=== PATIENT | male | born 1970 | race Caucasian/White ===

== ENCOUNTER 2024-05-10 14:21 | Emergency (ER) | payer MEDICAID, SELFPAY ==
[2024-05-10 14:22] VITALS: BMI 22.8
[2024-05-10 14:50] VITALS: BP 162/79; PULSE 76; RESP 18; TEMP 36.9; O2SAT 99
--- NOTE | 2024-05-10 15:15 | XR_ITS ---
Examination:Left hip AP, lateral, AP pelvis 3 views Technique: Hip AP lateral, AP pelvis, 3 views Exam date and time:May 10, 2024 1522 hours INDICATIONS: Left hip pain 2 weeks FINDINGS: Mild osteopenia. Moderate narrowing left hip joint Multiple mild to moderate narrowing right hip joint No hip or pelvic fracture IMPRESSION: Moderate narrowing left hip joint
--- NOTE | 2024-05-10 15:15 | XR_ITS ---
Examination: Lumbar spine 3 views Technique one AP lateral coned lateral lower lumbar spine 3 views Exam date and time: May 10, 2024 1538 hours Comparison August 13, 2022 indications: Chronic back pain more severe the last 2 weeks. FINDINGS: Adequate alignment lumbar vertebral bodies on the lateral view No lumbar fracture Moderate disc narrowing L5-S1 IMPRESSION: Moderate degenerative disc disease L5-S1
--- NOTE | 2024-05-10 15:16 | PD.EDHIP ---
Lower Extremity Injury RME/HPI General Chief Complaint: Hip Injury/Pain Stated Complaint: Left Hip Pain, Back pain x 2 weeks Time Seen by Provider: 05/10/24 14:53 Arrival date/time: 05/10/24 14:21 RME / HPI RME / HPI Narrative: 54-year-old male patient came in for evaluation regarding left hip pain. Onset of symptoms for the last 2 weeks as worsening left hip pain and low back pain, worst with positional change. Patient is walking but limping. Patient denies any direct trauma or fall. Pain is described as dull ache, severity moderate. Patient not taking anything for pain. Patient denies any saddle anesthesia leg weakness, leg numbness, bladder incontinence and bowel incontinence. Related Data Home Medications ?Medication ?Instructions ?Recorded ?Confirmed aspirin 81 mg tablet,delayed 1 tab PO QDAY 06/06/17 06/06/17 release (Aspir-) lisinopril 10 mg tablet 10 mg PO QDAY 06/06/17 06/06/17 trazodone 50 mg tablet 50 mg PO QDAY 06/06/17 06/06/17 Previous Rx's ?Medication ?Instructions ?Recorded tramadol 50 mg tablet 50 mg PO BID PRN pain #7 tabs 08/13/22 tramadol 50 mg tablet 50 mg PO BID PRN pain #10 tabs 10/17/22 tramadol 50 mg tablet 50 mg PO BID PRN pain #7 tabs 02/17/23 cyclobenzaprine 10 mg tablet 10 mg PO TID PRN muscle spasm #30 05/10/24 tabs ibuprofen 800 mg tablet 800 mg PO TID PRN pain #30 tabs 05/10/24 Allergies Allergy/AdvReac Type Severity Reaction Status Date / Time No Known Allergies Allergy Verified 02/17/23 13:04 Review of Systems Review of Systems Narrative Review of Systems: Review of system reviewed and within normal limits except mentioned in HPI ED Exam Narrative Physical exam: VITAL SIGNS: Reviewed. GENERAL APPEARANCE: Alert and interactive, follows commands, no acute distress, HEAD AND FACE: Non-traumatic. ENT: PERRL, pink conjunctivitis, eyelid no trauma, Mucous membrane moist. NECK: Supple, nontender, no nuchal rigidity. CHEST: No tenderness, no crepitus, no paradoxical movement, no retractions. LUNGS: Clear, well ventilated, symmetric, no rales, no wheezing, no ronchi, no stridor, good breath sounds bilaterally. HEART: Regular rate, regular rhythm, no murmur, no gallops. ABDOMEN: Soft, positive bowel sounds, nondistended, no guarding, nontender, no rebound, no masses, RECTAL: Deferred. GENITAL: Deferred. NEUROLOGICAL: Gross motor function intact sensory function intact, Appropriate for age. MUSCULOSKELETAL: low back tenderness, with limitation range of motion. No masses palpated, no rashes noted EXTREMITIES: Left hip tenderness, with limitation range of motion. SKIN: Color pink, dry, no rash, no lacerations, no abrasions, no contusions. LYMPHATICS: Deferred. Course Quality Measures none Orders Category Date Time Status XR hip LT w pelvis 2-3V Stat Exams 05/10/24 15:15 Completed XR lumbar spine 2-3V Stat Exams 05/10/24 15:15 Completed CYCLObenzaPRINE [Flexeril] Med 05/10/24 15:15 Discontinued 10 mg PO X1 ONE Ketorolac Inj [Toradol Inj] Med 05/10/24 15:15 Discontinued 30 mg IM X1 ONE Vital Signs Vital signs: Vital Signs Temperature 98.5 F 05/10/24 14:50 Pulse Rate 76 05/10/24 14:50 Respiratory Rate 18 05/10/24 14:50 Blood Pressure 162/79 H 05/10/24 14:50 Pulse Oximetry (%) 99 05/10/24 14:50 Oxygen Delivery Method Room Air 05/10/24 14:50 Extremity Injury, Lower MDM Narrative MDM Narrative:: 54-year-old male patient came in for evaluation regarding left hip pain. Onset of symptoms for the last 2 weeks as worsening left hip pain and low back pain, worst with positional change. Patient is walking but limping. Patient denies any direct trauma or fall. Pain is described as dull ache, severity moderate. Patient not taking anything for pain. Patient denies any saddle anesthesia leg weakness, leg numbness, bladder incontinence and bowel incontinence. X-ray of the hip showed narrowing of the joint space otherwise unremarkable. X-ray of the lumbar spine showed narrowing of the disc space L4-L5 otherwise unremarkable. Results discussed with the patient. Patient was also given a copy of his imaging today for him to follow-up with PCP tomorrow. Patient appears nontoxic and hemodynamically stable. Patient discharged home and instructed to follow-up with primary care provider in 24 to 48 hours. Instructed to return to the emergency department immediately if worsening of symptoms Patient data External records reviewed:: None Clinical information provided by:: none Social determinants that could affect healthcare access:: none Patient has the following chronic illnesses:: None How is presenting disease/condition affected by chronic disease/condition?: no chronic disease Evaluation data The following diagnostics were reviewed and interpreted by me:: radiology exam(s) Lab and/or radiology exams considered but not ordered:: Plan Interpretation Summary: See results in MDM Medications / Prescriptions Medications or Prescriptions considered but not ordered:: None Medication administrations:: Medication Administration History Discontinued Medications Cyclobenzaprine HCl (Cyclobenzaprine 5 Mg Tablet) 10 mg PO X1 ONE Stop: 05/10/24 15:16 Last Admin: 05/10/24 15:41 Dose: 10 mg Documented By: FAUSTO Ketorolac Tromethamine (Ketorolac Inj 60 Mg/2 Ml Vial) 30 mg IM X1 ONE Stop: 05/10/24 15:16 Last Admin: 05/10/24 15:41 Dose: 30 mg Documented By: FAUSTO Toradol and Flexeril Consultations Consultation(s) initiated? (list below): No Diagnosis Extremity Injury, Lower Differential Diagnosis: fracture of hip Most likely diagnosis given after review of the tests above:: Hip pain, low back pain, Admission Indicated Admission indicated?: not indicated Explain why admission is indicated or not indicated:: Stable Admission Request Was there a request for admission?: No Disposition Plan Disposition Plan: Discharge Discharge Attestation Discharge Attestation: The patient was given an opportunity to ask questions and understood the discharge instructions. Discharge instructions specifically effects, indications for sooner follow up or return to the emergency department, and the expected course of current diagnosis. Patient condition: Stable Discharge Plan Plan Patient Disposition: HOME (Self Care) Disposition Comment: Stable Prescriptions/Referrals Prescriptions/Med Rec: New ibuprofen 800 mg tablet 800 mg PO TID PRN (Reason: pain) Qty: 30 0RF cyclobenzaprine 10 mg tablet 10 mg PO TID PRN (Reason: muscle spasm) Qty: 30 0RF No Action aspirin [Aspir-81] 81 mg Tablet,Delayed Release (Dr/Ec) 1 tab PO QDAY trazodone 50 mg Tablet 50 mg PO QDAY lisinopril 10 mg Tablet 10 mg PO QDAY tramadol 50 mg tablet 50 mg PO BID PRN (Reason: pain) Qty: 7 0RF tramadol 50 mg tablet 50 mg PO BID MDD 2 PRN (Reason: pain) Qty: 10 0RF tramadol 50 mg tablet 50 mg PO BID PRN (Reason: pain) Qty: 7 0RF Referrals: No Primary/Family,Physician [Primary Care Provider] - In 1 week Problem List Clinical Impression: Hip pain, left, Hip osteoarthritis, DDD (degenerative disc disease), lumbar Patient/Caregiver Discharge Instructions Discharge Activity: activity as tolerated Education Materials: Arthritis: Exercise Additional Instructions: Thank you for the opportunity for serving you today. You are stable for discharged . You are advised to: Follow-up with your PCP in 1 to 2 days Return to ED for worsening of symptoms Increase oral fluids Take medication as prescribed Print Language: Cypriot Stand Alone Forms: [employer] Award Info., Work/School Release, Patient Portal Info Letter
[2024-05-10] MEDS: KETOROLAC INJ 60 MG/2 ML VIAL 30 MG IM (15:41)
[2024-05-10] MEDS: CYCLObenzaPRINE 5 MG TABLET 10 MG PO (15:41)
== END 2024-05-10 16:22 | disposition home or self-care (01) ==
PROVIDERS: Emergency Provider Emergency Medicine
DX: M16.12 Unilateral primary osteoarthritis, left hip (principal); M51.370 Other intervertebral disc degeneration, lumbosacral region with discogenic back pain only
CPT/HCPCS: 72100; 73502; 96372; 99283; J1885; A9270

== ENCOUNTER 2024-06-11 10:53 | Outpatient (RCR) | payer MEDICAID, SELFPAY ==
--- NOTE | 2024-06-11 11:31 | PT.OIERPT ---
PT OP Initial Eval Patient Information Outpatient Physical Therapy Treatment Date: 06/11/24 Visit Reasons: low back pain Medical Diagnosis: M54.50; M25.552 Treatment Dx #1: Back Pain Treatment Dx #2: Right Hip Pain Start of Care: 06/11/24 Date of Onset: 30 years ago Smoking Status Smoking Status: Current every day smoker Cessation Counseling Provided: GERALD was advised that quitting smoking is the single most important factor to protect the health of themselves and their family. Discussed the benefits of quitting smoking with patient. Encouraged patient to quit smoking and provided Cessation assistance materials and resources. Tobacco Use: Cigarette Years smoked: 20 Are you interested in quitting?: No Would you like additional Smoking Cessation Counseling?: No Initial Assessment Subjective: Pt is a 54 y/o male reports of chronic back pain ~ 30 years ago. Pt notice increase right LE pain lately. Pt's most recent xray showed L5-S1 moderate DDD. Pt is pending MRI post physical therapy. Pt has limitation with sitting, standing, lifting, work duties, chores, self care, and recreational activities. Objective: L/S AROM: all motions are WFL with end pain into extension Hip PROM: all motions are WFL except IR Hip MMTs: grossly 3+/5 Muscle Length: Hs tightness Special Test (+) SLR Assessment: Pt demonstrate back pain consistent with possible disc involvement leading to difficulty with ADLs. Pt will attempt physical therapy if pain persist Pt will be refer back to provider for further consultation. 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
== END 2024-06-18 23:59 | disposition home or self-care (01) ==
LOC: CPTX 10:53
PROVIDERS: PCP Nurse Practitioner Family; Referring Provider Nurse Practitioner Family; Visit Provider Nurse Practitioner Family
DX: M51.372 Other intervertebral disc degeneration, lumbosacral region with discogenic back pain and lower extremity pain (principal); M25.551 Pain in right hip; G89.29 Other chronic pain; Z71.6 Tobacco abuse counseling; F17.210 Nicotine dependence, cigarettes, uncomplicated
CPT/HCPCS: 97162

== ENCOUNTER 2024-06-19 09:11 | Outpatient (RCR) | payer MEDICAID, SELFPAY ==
--- NOTE | 2024-06-19 09:51 | PT.ODAYNRPT ---
PT Outpatient Daily Note OP Daily Note Outpatient Physical Therapy Treatment Date: 06/19/24 Visit Reasons: LOW BACK PAIN Subjective: Pt mentioned physical therapy is not going to help the back and it's a scam . Pt plans to head back to his provider to see if he can stop physical therapy; it's wasting his time. Objective: Please see flow chart for list of ther ex performed Assessment: patient came into therapy session with a negative attitude stated physical therapy was not going to help and it's a scam . Pt encouraged to complete session, however, stayed for ~ 15 mins performing a few exercises. Pt advised to consult with PCP post PT session if physical therapy is a fit for him at this time. Pt gave verbal consent and will make another appt with PCP. No change in pain post Pt session due to minimal effort giving in PT session Plan: Continue PT if pain warrants the service Length of Time (minutes) of Treatment: 15 Minutes Procedure Charges Therapeutic Exercise 15 minutes: Yes
--- NOTE | 2024-06-26 14:12 | PT.ODS1RPT ---
PT OP Progress/Discharge Note Date of Service: 06/26/24 Progress Note/DC Note Progress Note/Discharge Note: DC Note Patient Information Visit Reasons: LOW BACK PAIN Service Discharge Date: 06/26/24 Status Assessment: Pt has been seen for 2 visits (eval + 1 visit). Pt last treated on 06/19/24 and no showed 06/21/24. On Pt was not content with physical therapy and feels that it's a scam . Pt will like to discontinue and will talk to PCP. Pt d/c from care per Pt's request. Pt did not meet set goals in therapy; thank you for your referrals
== END 2024-07-18 23:59 | disposition home or self-care (01) ==
LOC: CPTX 09:11
PROVIDERS: PCP Nurse Practitioner Family; Referring Provider Nurse Practitioner Family; Visit Provider Nurse Practitioner Family
DX: M51.372 Other intervertebral disc degeneration, lumbosacral region with discogenic back pain and lower extremity pain (principal); G89.29 Other chronic pain
CPT/HCPCS: 97110

== ENCOUNTER → 2024-07-27 | Outpatient (CLI) | payer MEDICAID, SELFPAY ==
--- NOTE | 2024-07-27 16:30 | XR_ITS ---
Examination: MRI lumbar spine without contrast Date and time of exam: July 27, 2024 7004 hours INDICATIONS: Low back pain radiating to left leg weakness in the left leg 4 months post injury Technique: Multiple MRI axial and sagittal sections lumbar spine. Sagittal T2-weighted images, TR 3500, TE 118 T1 weighted transverse sections, TR 688 T8.5, T2-weighted sagittal sections T1 weighted sagittal sections TR 621, TE 30 T2 axial sections, TR 4, 190, TE 84. Findings: Adequate alignment lumbar vertebral bodies No lumbar fracture Moderate disc narrowing posteriorly at L5-S1 with disc desiccation L5-S1 3 mm central lumbar disc bulge L4-L5 2 mm central lumbar disc bulge More cephalad levels unremarkable IMPRESSION: Moderate disc narrowing posteriorly L5-S1 L5-S1 3 mm central lumbar disc bulge. L4-L5 2 mm central lumbar disc bulge
== END | disposition home or self-care (01) ==
LOC: SMRI 16:16
PROVIDERS: PCP Nurse Practitioner Family; Referring Provider Nurse Practitioner Family; Visit Provider Nurse Practitioner Family
DX: M51.16 Intervertebral disc disorders with radiculopathy, lumbar region (principal); M51.17 Intervertebral disc disorders with radiculopathy, lumbosacral region; M48.07 Spinal stenosis, lumbosacral region
CPT/HCPCS: 72148

== ENCOUNTER 2024-10-27 11:19 | Emergency (ER) | payer MEDICAID, SELFPAY ==
--- NOTE | 2024-10-27 | XR_ITS ---
Examinations: MRI Brain without intravenous contrast. MRI brain with intravenous contrast MRA brain with intravenous contrast. MRA brain without intravenous contrast MRA neck with intravenous contrast Date and time of exam: October 27, 2024, 1506 hours INDICATIONS: Stroke alert this morning, onset focal neurologic deficit, slurred speech weakness Technique: Multiple axial and sagittal images of the brain have been obtained Siemens high-resolution 1.5 Tigist short bore scanner is utilized. Sagittal sections, T1-weighted, TR 500, TE 14 Axial sections proton density and T2-weighted, TR 3,000, TE 34, TR 3,000, TE 91 Inversion recovery axial images, TR 9,260, TE 111, TI 2,500 Diffusion weighted images, axial sections, TR 4,800, TE 128, B value 1,000 Axial sections, ADC map, TR 4,800, TE 128. Contrast images have been obtained post intravenous 19 cc Gadolinium. T1-weighted axial and coronal images post contrast have been obtained. Angiographic images of neck and brain are obtained pre and post contrast. 3-D post processing performed, including brain, extracranial neck arterial maximum intensity projections Findings: Sellaturcica is not enlarged. The optic chiasm and infundibular stalk are not remarkable. Prepontine and interpeduncular cisterns are not enlarged. No localized enlargement of the medulla or rachel. Fourth ventricle and cerebellar tonsils normal in position. Subacute hemorrhage is not seen. Fourth ventricle is midline. Mass in the cerebellopontine angle region is not evident. 7th and 8th nerve complexes exhibits symmetry. Globes are symmetrical with no retro-orbital mass. Increased white matter signal mild Diffusion-weighted images confirms focus of restricted diffusion in the left brainstem pontine level, 14 mm Mass-effect upon the ventricular system is not identified. Abnormal contrast enhancement is no abnormal enhancement. 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
[2024-10-27 11:39] VITALS: BP 160/109; PULSE 70; RESP 18; TEMP 37; O2SAT 97; BMI 22.8
--- NOTE | 2024-10-27 11:44 | XR_ITS ---
Examination: CT brain head without contrast. 2-D sagittal coronal reconstructions Date and time of exam:October 27, 2024, 1300 hours INDICATIONS: Hypertension with headache beginning 3 days ago CTDI: vol (mGy):48.8 DLP: (mGycm):942 Technique: Multiple CT axial sections of the brain have been obtained, 5 mm slice thickness. Contrast has not been administered. 2-D sagittal, coronal reconstructions have been obtained Low dose protocols were performed. One or more of the following dose reduction techniques were used; automated exposure control, adjustment of the mA and/or KV according to patient size, use of iterative reconstruction technique. Findings: No significant ventricular enlargement. 17 mm low-density in the left brainstem pontine level consistent with infarct, which may be old, clinical correlation advised Intra-axial or extra-axial hemorrhage density is not seen. No mass effect or midline shift Basal cisterns are not remarkable. Fourth ventricle is midline. Cranial vault intact. Impression: Negative for acute hemorrhage, mass effect or midline shift 17 mm infarct in the left brain stem, which may be old, the appearance should be clinically correlated, recommend brain MRI follow-up, stroke protocol as clinically warranted
--- NOTE | 2024-10-27 11:45 | EKG_ITS ---
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
--- NOTE | 2024-10-27 11:46 | XR_ITS ---
Examination: PA lateral chest 2 views TECHNIQUE: Upright PA and lateral chest 2 views Date and time: October 27, 2024, 1205 hours INDICATIONS: Chest pain today. FINDINGS: Normal heart size. Lungs are clear. The osseous structures are intact. IMPRESSION: No active disease.
--- NOTE | 2024-10-27 11:46 | PD.EDRME ---
Rapid Medical Screening Exam RME Arrival date/time: 10/27/24 11:19 54-year-old male presents to the Emergency Department today with who reports patient has been acting abnormally for the last couple of days reports slurred speech. Currently patient GCS 15 no deficits noted at this time Chief Complaint: Weakness Vital signs: Vital Signs Temperature 98.6 F 10/27/24 11:39 Pulse Rate 70 10/27/24 11:39 Respiratory Rate 18 10/27/24 11:39 Blood Pressure 160/109 H 10/27/24 11:39 Pulse Oximetry (%) 97 10/27/24 11:39 Oxygen Delivery Method Room Air 10/27/24 11:39
[2024-10-27 12:20] LABS: Collection Type, Urine Clean Catch; Squamous Epithelial Cell,Urine 0 /hpf (0-5); WBC,Urine 0 /hpf (0-5)
[2024-10-27 12:24] LABS: Basophils # (Auto) 0.1 Thou/mm3 (0.0-0.2); Basophils % (Auto) 1 % (0-2.5); Eosinophils # (Auto) 0.2 Thou/mm3 (0.0-0.5); Eosinophils % (Auto) 2 % (0-10); Hematocrit 39.9 % (41.0-53.0); Hemoglobin 14.1 g/dL (13.5-16.0); Immature Granulocytes Auto 0.02 Thou/mm3 (0.00-0.00); Lymphocytes # (Auto) 1.8 Thou/mm3 (1.0-4.8); Lymphocytes % (Auto) 19 % (10-50); Mean Corpuscular HGB Conc 35.3 g/dl (31.0-37.0); Mean Corpuscular Hemoglobin 30.9 pg (25.0-35.0); Mean Corpuscular Volume 88 fL (80-100); Monocytes # (Auto) 0.5 Thou/mm3 (0.0-0.8); Monocytes % (Auto) 5 % (0-12); Neutrophils # (Auto) 7.0 Thou/mm3 (1.8-7.7); Neutrophils % (Auto) 73 % (37-80); Nucleated Red Blood Cell # 0.00 Thou/mm3 (0.00-0.00); Nucleated Red Blood Cell % 0 /100 WBC (0); Platelet Count 246 Thou/mm3 (140-440); RDW Standard Deviation 45.2 fL (35.1-43.9); Red Blood Count 4.56 Miln/mm3 (4.50-5.90); White Blood Count 9.5 Thou/mm3 (3.8-10.6)
[2024-10-27 12:30] VITALS: BP 150/85; PULSE 60; RESP 19; TEMP 36.6; O2SAT 97
--- NOTE | 2024-10-27 12:30 | PC.NURSE ---
in to assess pt. pt from home with c/o slurred speech x3 days. pt without further complaints at this time. orders received and initiated. work up in progress, call light placed within reach. plan of care ongoing.
[2024-10-27 12:50] LABS: Bilirubin,Urine Negative (Negative); Blood,Urine Negative (Negative); Clarity,Urine Clear (Clear/Hazy); Color,Urine Colorless (Lt Yel-Yel); Glucose, Urine Negative (Negative); Ketones,Urine Negative (Negative); Leukocyte Esterase,Urine Negative (Negative); Nitrite,Urine Negative (Negative); PH,Urine 6.5 (5.0-7.0); Protein,Urine Negative (Neg - Trace); RBC,Urine < 1 /hpf (0-3); Specific Gravity,Urine 1.005 (1.001-1.035); Urobilinogen,Urine Negative mg/dL (0.0-1.0)
[2024-10-27 12:54] LABS: Amphetamine/Methamp Scrn,U Negative (Negative); Barbiturate Screen,Urine Negative (Negative); Benzodiazepines Screen,Urine Negative (Negative); Benzoylecgonine Screen, Ur Negative (Negative); Fentanyl Screen,Urine Negative (Negative); Opiate Screen,Urine Negative (Negative); THC Screen,Urine Negative (Negative)
[2024-10-27 12:54] LABS: INR 1.0 (0.9-1.3); Partial Thromboplastin Time 25.5 Seconds (22.0-36.0); Prothrombin Time 10.5 Seconds (9.0-12.2)
[2024-10-27 12:57] LABS: B-Type Natriuretic Peptide 46 pg/mL (0-100)
[2024-10-27 13:00] LABS: Alanine Aminotransferase 13 U/L (10-49); Albumin, Serum 4.4 gm/dL (3.5-5.0); Albumin/Globulin Ratio 2.0 (1.2-2.2); Alkaline Phosphatase 97 U/L (46-116); Anion Gap 9 (7-16); Aspartate Amino Transferase 18 U/L (0-34); BUN/Creatinine Ratio 6 Ratio (12-20); Bilirubin,Total 0.5 mg/dL (0.3-1.2); Blood Urea Nitrogen 6 mg/dL (9-23); Calcium 9.1 mg/dL (8.3-10.6); Calcium (Corrected) 9.1 mg/dL (8.5-10.1); Carbon Dioxide 23.2 mMol/L (20.0-31.0); Chloride 109 mMol/L (98-107); Creatinine (Component) 1.0 mg/dL (0.6-1.3); Estimated Creatinine Clearance 82.0 mL/min (>60); Globulin 2.2 gm/dL (2.3-3.5); Glucose 89 mg/dL (74-106); Magnesium 1.6 mg/dL (1.6-2.6); Osmolality,Calculated 277 (275-295); Potassium 3.5 mMol/L (3.4-5.1); Sodium 141 mMol/L (136-145); Total Protein 6.6 gm/dL (5.7-8.2); Troponin I < 0.020 ng/mL (0.0-0.045); eGFR > 60 See Note
--- NOTE | 2024-10-27 13:56 | PD.EDADULT ---
ED General RME/HPI General Chief complaint: Weakness Stated complaint: SLURRED SPEECH X 3 DAYS, WEAKNESS; Time Seen by Provider: 10/27/24 12:52 Arrival date/time: 10/27/24 11:19 RME / HPI RME / HPI narrative: 10/27/24 11:19 54-year-old male presents to the Emergency Department today with who reports patient has been acting abnormally for the last couple of days reports slurred speech. Currently patient GCS 15 no deficits noted at this time DR. TAN MAIN ED EVALUATION: 54-year-old male presents with slurred speech for approximately 3 days, described as sounding drunk; patient does not drink. Associated generalized weakness. No difficulty swallowing, no visual problems, and no facial droop noted. Denies fever, chills, nausea, vomiting, chest pain, or cough. No fall or trauma. 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 No known past medical history. Denies alcohol or drug use, but reports smoking. Related Data Home Medications ?Medication ?Instructions ?Recorded ?Confirmed aspirin 81 mg tablet,delayed 1 tab PO QDAY 06/06/17 06/06/17 release (Aspir-) lisinopril 10 mg tablet 10 mg PO QDAY 06/06/17 06/06/17 trazodone 50 mg tablet 50 mg PO QDAY 06/06/17 06/06/17 Previous Rx's ?Medication ?Instructions ?Recorded tramadol 50 mg tablet 50 mg PO BID PRN pain #7 tabs 08/13/22 tramadol 50 mg tablet 50 mg PO BID PRN pain #10 tabs 10/17/22 tramadol 50 mg tablet 50 mg PO BID PRN pain #7 tabs 02/17/23 cyclobenzaprine 10 mg tablet 10 mg PO TID PRN muscle spasm #30 05/10/24 tabs ibuprofen 800 mg tablet 800 mg PO TID PRN pain #30 tabs 05/10/24 Allergies Allergy/AdvReac Type Severity Reaction Status Date / Time No Known Allergies Allergy Verified 10/27/24 11:24 Review of Systems Review of Systems Systems Reviewed: All systems reviewed, normal except as documented Past Medical History Past Medical History CARDIAC: Positive Cardiac Disorders Social History SMOKING STATUS: Heavy (> 1 pack/day) SUBSTANCE USE: does not use ALCOHOL: Never ED Exam Narrative Physical exam: Physical Exam:? General:?? ? The vital signs were reviewed. ?Patient has very mild slurring of his speech the patient is non-toxic, in no apparent distress and appears healthy with a patent airway, no respiratory distress and has no apparent circulatory problems. Head & Scalp:?? ? Normocephalic, atraumatic. Face:?? ? Appears normal and is without lesions, deformity. Ears:??? Left external pinna appears normal. ? ? Right external pinna appears normal. Eyes:?? ? The sclera is anicteric.? No obvious photophobia. ? ? The Left and Right Orbit/Lid/Conjunctiva appears normal without swelling, discoloration or injection. Nose: ? ? The nose is without deformity, discharge or tenderness; Throat: ? ? Appears normal.? The mucous membranes are pink and moist without exudates, redness or mass seen.? The tongue appears normal. Neck: The neck is supple and no apparent mass or adenopathy. Chest: The chest wall is normal in size and symmetry and has no chest wall tenderness or crepitus. ? ? The patient displays normal ventilator effort without retractions, accessory muscle use and has adequate air movement bilaterally with no wheezes and no rales. ? Cardiovascular: Regular rate and rhythm; No murmurs, rubs, or gallops; Gastrointestinal: The abdomen appears normal.? No obvious hernias or mass. The abdomen is soft and benign, non-distended, with no pain, no guarding and no rebound tenderness.? Bowel sounds are present and normal sounding.? No CVA tenderness. Genitourinary: Back/Spine: Extremities/Musculoskeletal/lymphatic:? ? ? The bilateral upper and lower extremities are warm. There is no evidence of arterial? insufficiency. There is no evidence of venous insufficiency/edema. The patient spontaneously moves bilateral upper and lower extremities with no pain and no limitation of movement.? There is no apparent, injury or trauma. Skin:? The skin is warm, dry and intact.? No rashes. No petechia. No purpura. No abnormal bruising.? The color is appropriate with no cyanosis. Mental status/Psychiatric: Mental status is appropriate for age. The patient has no apparent delusions, visual hallucinations, no apparent audible hallucinations. The patient has no apparent suicidal thoughts/ideation and no apparent homicidal thoughts/ideation. Neurological:? Patient slightly slurs his words, but rest of neuro exam is normal. He is alert awake talking. He is not have any problems swallowing. There is no apraxia or ataxia. The patient is awake, alert, interactive, cordial, cooperative and is oriented to name and situation. The patient follows commands and answers historical question with no impairment.?? There is no visual disturbance apparent.? The pupils are equal and reactive bilaterally with normal eye movements and no diplopia The bilateral upper and lower extremities have normal strength, normal range of motion and normal functioning. Patient ambulates without any difficulty gets on and off the gurney without any hesitancy. Cranial nerves are intact 2 through 12 Course Quality Measures none Orders Category Date Time Status EKG (ED ONLY) *Do not use* NOW Care 10/27/24 11:45 Completed Referral - Systems Support Engineer Stat Cons 10/27/24 16:[address] head/brain wo con Stat Exams 10/27/24 11:44 Completed EKG (ED Only) Stat Exams 10/27/24 11:45 Draft MR stroke protocol brain wwo with MRA head and neck Exams 10/27/24 Completed Stat XR chest 2V Stat Exams 10/27/24 11:46 Completed B-Type Natriuretic Peptide Stat Lab 10/27/24 12:10 Completed CBC Stat Lab 10/27/24 12:10 Completed Comprehensive Metabolic Panel Stat Lab 10/27/24 12:10 Completed Drug Screen,Urine Stat Lab 10/27/24 12:00 Completed Magnesium Stat Lab 10/27/24 12:10 Completed Partial Thromboplastin Time Stat Lab 10/27/24 12:10 Completed Prothrombin Time with INR Stat Lab 10/27/24 12:10 Completed Troponin I Stat Lab 10/27/24 12:10 Completed Urinalysis Stat Lab 10/27/24 12:00 Completed Vital Signs Vital signs: Vital Signs Temperature 98.6 F 10/27/24 11:39 Pulse Rate 70 10/27/24 11:39 Respiratory Rate 18 10/27/24 11:39 Blood Pressure 160/109 H 10/27/24 11:39 Pulse Oximetry (%) 97 10/27/24 11:39 Oxygen Delivery Method Room Air 10/27/24 11:39 Critical Care Time Critical Care Time Critical Care Time: Yes Total Critical Care Time (min.): 45 Attestation: The high probability of sudden, clinically significant deterioration in the patient's condition required the highest level of my preparedness to intervene urgently. The services I provided to this patient were to treat and/or prevent clinically significant deterioration. Services included the following: chart data review, reviewing nursing notes and/or old charts, documentation time, plan consultant collaboration regarding findings and treatment options, medication orders and management, direct patient care, vital sign assessments and ordering, interpreting and reviewing diagnostic studies and lab tests. Aggregate critical care time includes only time during which I was engaged in work directly related to the patient's care, as described above, whether at bedside or elsewhere in the Emergency Department. It did not include time spent performing other reported procedures or the services of residents, students, nurses or physician assistants. Discharge Plan Plan Patient Disposition: [facility] Service Needed for Transfer: Neurology Prescriptions/Referrals Prescriptions/Med Rec: No Action aspirin [Aspir-81] 81 mg Tablet,Delayed Release (Dr/Ec) 1 tab PO QDAY trazodone 50 mg Tablet 50 mg PO QDAY lisinopril 10 mg Tablet 10 mg PO QDAY tramadol 50 mg tablet 50 mg PO BID PRN (Reason: pain) Qty: 7 0RF ibuprofen 800 mg tablet 800 mg PO TID PRN (Reason: pain) Qty: 30 0RF cyclobenzaprine 10 mg tablet 10 mg PO TID PRN (Reason: muscle spasm) Qty: 30 0RF tramadol 50 mg tablet 50 mg PO BID MDD 2 PRN (Reason: pain) Qty: 10 0RF tramadol 50 mg tablet 50 mg PO BID PRN (Reason: pain) Qty: 7 0RF Referrals: No Primary/Family,Physician [Primary Care Provider] - In 1 week Problem List Clinical Impression: Acute brainstem infarction, Slurring of speech Impression comment: 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 Tan. The patient presents with 3 days of slurring of his words but no history of ingestion alcohol use. CT was done reveals 17 mm infarct left brain strain age-indeterminate.. 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 Laboratory studies are unremarkable with a normal CBC PT/INR within normal limits BUN 6 creatinine 1.0 transaminases are normal urinalysis unremarkable urine drug screen came back negative. Chest x-ray was unremarkable no infiltrates no effusion normal heart size. MRI came back confirming a 14 mm pontine infarct which appears to be acute per the MRI report. Historically he has had slurred speech for 3 days and he is kind of in the window where his swelling would be maximized. And he has no reason to believe he or there is no herniation seen. We have no neurology on-call at this time. So I talked to our transfer nurse and we requested transfer and they connected me with Mariah at the transfer nurse at [facility] and they later connected me with the neurologist on-call who is a Dr. pelaez, we discussed the case and since we have no neurology on-call he agreed we probably should transfer the patient for them to evaluate and make a decision. Patient was informed also for 81 mg of aspirin. Note the patient states he has not been taking any medicines for a period of time. He does smoke which is his only risk factor and note the medications were not reconciled on the chart as I am dictating this. Procedures done or offered: CT of the head reveals: negative for acute hemorrhage, mass effect or midline shift 17 mm infarct in the left brain stem, which may be old, the appearance should be clinically correlated, recommend brain MRI follow-up, stroke protocol as clinically warranted The MRI was done and it confirms an acute infarct of the left brainstem at the pontine level 14 mm presumed this is 3 days old as his symptoms are 3 days old but we have no neurology on-call at this time and he probably should be transferred to a facility and I can observe and advise further therefore consult for transfer nurse was placed in the care of this patient will go to the oncoming doctor. Clinical Information Provided by patient Medical Records Reviewed [facility] Meds/Rx Considered, not Ordered None Labs/Rad/Tests considered, not Ordered None Chronic Illness/Social Conditions Add or document further as needed: No known PMHx, surgeries, daily medications, or known allergies. EKG EKG Interpretation narrative: My interpretation: EKG performed at 1149 hours, sinus rhythm, rate 68, no STEMI Lab Interpretation Labs: see narrative above Imaging Imaging interpretation: see narrative above Radiology reports / interpretation(s): Procedure(s): XR chest 2V Accession Number(s): [id number] cc: Aidan RODRIGUEZ),Mervin BAGLEY; Oswaldo Nichols MD; NO PRIMARY/FAMILY,PHYSICIAN~ Examination: PA lateral chest 2 views TECHNIQUE: Upright PA and lateral chest 2 views Date and time: October 27, 2024, 1205 hours INDICATIONS: Chest pain today. FINDINGS: Normal heart size. Lungs are clear. The osseous structures are intact. IMPRESSION: No active disease. Dictated By: Oswaldo Nichols MD Procedure(s): CT head/brain wo con Accession Number(s): [id number] cc: Aidan RODRIGUEZ),Mervin BAGLEY; Oswaldo Nichols MD; NO PRIMARY/FAMILY,PHYSICIAN~ Examination: CT brain head without contrast. 2-D sagittal coronal reconstructions Date and time of exam:October 27, 2024, 1300 hours INDICATIONS: Hypertension with headache beginning 3 days ago CTDI: vol (mGy):48.8 DLP: (mGycm):942 Technique: Multiple CT axial sections of the brain have been obtained, 5 mm slice thickness. Contrast has not been administered. 2-D sagittal, coronal reconstructions have been obtained Low dose protocols were performed. One or more of the following dose reduction techniques were used; automated exposure control, adjustment of the mA and/or KV according to patient size, use of iterative reconstruction technique. Findings: No significant ventricular enlargement. 17 mm low-density in the left brainstem pontine level consistent with infarct, which may be old, clinical correlation advised Intra-axial or extra-axial hemorrhage density is not seen. No mass effect or midline shift Basal cisterns are not remarkable. Fourth ventricle is midline. Cranial vault intact. Impression: Negative for acute hemorrhage, mass effect or midline shift 17 mm infarct in the left brain stem, which may be old, the appearance should be clinically correlated, recommend brain MRI follow-up, stroke protocol as clinically warranted Dictated By: Oswaldo Nichols MD Procedure(s): MR stroke protocol [facility] Accession Number(s): [id number] cc: Mumtaz Tan MD; Oswaldo Nichols MD; NO PRIMARY/FAMILY,PHYSICIAN~ Examinations: MRI Brain without intravenous contrast. MRI brain with intravenous contrast MRA brain with intravenous contrast. MRA brain without intravenous contrast MRA neck with intravenous contrast Date and time of exam: October 27, 2024, 1506 hours INDICATIONS: Stroke alert this morning, onset focal neurologic deficit, slurred speech weakness Technique: Multiple axial and sagittal images of the brain have been obtained Siemens high-resolution 1.5 Tigist short bore scanner is utilized. Sagittal sections, T1-weighted, TR 500, TE 14 Axial sections proton density and T2-weighted, TR 3,000, TE 34, TR 3,000, TE 91 Inversion recovery axial images, TR 9,260, TE 111, TI 2,500 Diffusion weighted images, axial sections, TR 4,800, TE 128, B value 1,000 Axial sections, ADC map, TR 4,800, TE 128. Contrast images have been obtained post intravenous 19 cc Gadolinium. T1-weighted axial and coronal images post contrast have been obtained. Angiographic images of neck and brain are obtained pre and post contrast. 3-D post processing performed, including brain, extracranial neck arterial maximum intensity projections Findings: Sellaturcica is not enlarged. The optic chiasm and infundibular stalk are not remarkable. Prepontine and interpeduncular cisterns are not enlarged. No localized enlargement of the medulla or rachel. Fourth ventricle and cerebellar tonsils normal in position. Subacute hemorrhage is not seen. Fourth ventricle is midline. Mass in the cerebellopontine angle region is not evident. 7th and 8th nerve complexes exhibits symmetry. Globes are symmetrical with no retro-orbital mass. Increased white matter signal mild Diffusion-weighted images confirms focus of restricted diffusion in the left brainstem pontine level, 14 mm Mass-effect upon the ventricular system is not identified. Abnormal contrast enhancement is no abnormal enhancement. 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 Dictated By: Oswaldo Nichols MD Diagnosis Differential diagnosis: TIA, CVA, and electrolyte imbalance Most likely dx, and/or detailed dx discussion: Acute brainstem infarction Dispositon Disposition: Transfer
--- NOTE | 2024-10-27 16:50 | PC.NURSE ---
[facility] CALLING TO SPEAK TO DR. DUNCAN
[2024-10-27] MEDS: ASPIRIN EC 81 MG TABEC PO (17:51)
[2024-10-27 17:55] VITALS: BP 152/87; PULSE 48; RESP 15; TEMP 36.6; O2SAT 98
--- NOTE | 2024-10-27 17:59 | EKG_ITS ---
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
--- NOTE | 2024-10-27 18:00 | PC.NURSE ---
bradycardia noted, HR 40's-50's. EKG ordered. provider notified. provider to follow.
--- NOTE | 2024-10-27 18:31 | PC.CC ---
1635- Dr. Solis called for consult or transfer. 1640-packet made and sent to [facility], they requested to speak to Dr. Tan, gave them his direct line. 1653-Images pushed through [employer] 1707-Dr. Solis on phone with [facility] 1709- [facility] accepting Dr. Walter Neurology ED to ED transfer call report [phone]
[2024-10-27 18:47] VITALS: BP 167/95; PULSE 54; RESP 18; TEMP 36.6; O2SAT 98
== END 2024-10-27 18:50 | disposition short-term general hospital (02) ==
PROVIDERS: Nurse Practitioner Primary Care; Emergency Provider Emergency Medicine
DX: I63.9 Cerebral infarction, unspecified (principal); R53.1 Weakness; R47.81 Slurred speech; R29.701 NIHSS score 1; F17.210 Nicotine dependence, cigarettes, uncomplicated
CPT/HCPCS: 36415; 70450; 70553; 71046; 80053; 80307; 81001; 83735; 83880; 84484; 85025; 85610; 85730; 93005; 99283; A9577; A9270